=== PATIENT | female | born 2000 | race Caucasian/White ===

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

== ENCOUNTER 2022-08-15 14:17 | Emergency (ER) | payer MEDICAID, OTHER ==
[~2022-08-15] VITALS: Ht 160 cm; Wt 77.1 kg
[2022-08-15 14:49] VITALS: BP 141/71
--- NOTE | 2022-08-15 14:51 | NUR ---
COUGH, SORE THROAT X 1 WEEK. TOOK COVID TEST W/ IS NEGATIVE TODAY. OXYGEN SATURATION IN ROOM AIR IS AT 98%. WILL CONTINUE TO MONITOR THE PATIENT.
[2022-08-15] MEDS ORDERED: ALBU18HF2 INH (15:48)
[2022-08-15] MEDS ORDERED: BENZ-13 PO (15:48)
--- NOTE | 2022-08-15 16:14 | NUR ---
Patient discharged to home in stable condition. Written and verbal after care instructions given. Patient verbalizes understanding of instruction.
== END 2022-08-15 16:14 | disposition home or self-care (01) ==
LOC: ER 14:20
DX: R05.9 Cough, unspecified (principal); E11.9 Type 2 diabetes mellitus without complications; Z88.1 Allergy status to other antibiotic agents; Z91.013 Allergy to seafood
CPT/HCPCS: 71045-TC

== ENCOUNTER 2022-12-06 12:10 | Emergency (ER) | payer MEDICAID, OTHER ==
[~2022-12-06] VITALS: Ht 160 cm; Wt 86.2 kg
[~2022-12-06 12:10] MED LIST: ALBU18HF2 INH; BENZ-13 PO
[2022-12-06 12:18] VITALS: BP 146/79; TEMP 98.1
[2022-12-06] MEDS ORDERED: IBUP-1955 PO (13:37)
[2022-12-06 13:54] VITALS: O2SAT 100
== END 2022-12-06 13:56 | disposition home or self-care (01) ==
LOC: ER 12:19
DX: S63.616A Unspecified sprain of right little finger, initial encounter (principal); E11.9 Type 2 diabetes mellitus without complications; Z88.0 Allergy status to penicillin; Z91.013 Allergy to seafood; Z91.018 Allergy to other foods; W23.0XXA Caught, crushed, jammed, or pinched between moving objects, initial encounter; Y93.68 Activity, volleyball (beach) (court); Y92.89 Other specified places as the place of occurrence of the external cause; Y99.8 Other external cause status
CPT/HCPCS: 73140-TC

== ENCOUNTER 2024-12-29 12:22 | Emergency (ER) | payer MEDICAID, OTHER ==
[~2024-12-29] VITALS: Ht 157.5 cm; Wt 84.4 kg
[~2024-12-29 12:22] MED LIST changes: +IBUP-1955 PO
[2024-12-29] MEDS ORDERED: ONDANSETRON 4 MG TAB.RAPDIS ONE (15:29)
[2024-12-29] MEDS ORDERED: DICYCLOMINE HCL 10 MG CAPSULE PO ONE (15:29)
[2024-12-29] MEDS: DICYCLOMINE HCL 10 MG CAPSULE PO ONE (15:31)
[2024-12-29] MEDS: ONDANSETRON 4 MG TAB.RAPDIS PO ONE (15:32)
[2024-12-29 15:42] LABS: PLATELET COUNT (AUTO) 357 K/uL (150-450); RED BLOOD CELL COUNT(AUTO) 4.39 MIL/uL (4.0-5.2); RED CELL DISTRIBUTION WIDTH 13.3 % (11.5-15.0); WHITE BLOOD COUNT (AUTO) 10.6 K/uL (4.3-11.0)
[2024-12-29 15:44] LABS: APPEARANCE,URINE SLIGHTLY CLOUDY (CLEAR); BLOOD, URINE NEGATIVE Ery/uL (NEGATIVE); LEUKOCYTE ESTERASE ,URINE TRACE (NEGATIVE); NITRITE, URINE NEGATIVE (NEGATIVE); UGLUCOSE NEGATIVE (NEGATIVE)
[2024-12-29 15:47] LABS: PREGNANCY TEST URINE QUAL NEGATIVE (NEGATIVE)
[2024-12-29 15:48] LABS: CALCIUM, SERUM 9.3 mg/dL (8.5-10.1); CREATININE 1.1 mg/dL (0.6-1.3); SODIUM SERUM 140.0 mmol/L (136-145); UREA NITROGEN, BLOOD 15.0 mg/dL (7-18)
[2024-12-29 15:55] LABS: ASPARTATE AMINOTRANSFERASE 28.0 U/L (15-37); TOTAL PROTEIN, SERUM 8.0 g/dL (6.4-8.2)
[2024-12-29] MEDS ORDERED: ONDA4TAB5 PO (16:14)
[2024-12-29] MEDS ORDERED: NITR100C6 PO (16:14)
[2024-12-29 16:26] VITALS: BP 120/78; TEMP 97.9; O2SAT 99
[2024-12-29 16:28] LABS: SQUAMOUS EPITHELIAL CELL,UR Many /HPF (None Seen)
[2024-12-29 16:29] LABS: ADD URINE CULTURE YES
[2024-12-29 16:32] LABS: COARSE GRANULAR CASTS,URINE Few /LPF (None Seen)
== END 2024-12-29 16:26 | disposition home or self-care (01) ==
LOC: ER 12:26
DX: N30.00 Acute cystitis without hematuria (principal); E11.9 Type 2 diabetes mellitus without complications; Z88.0 Allergy status to penicillin; Z91.013 Allergy to seafood
CPT/HCPCS: 99283; 85025; 80048; 87086; 83690; 80076; 81001; 36415; 84703 ×2; Q0162